=== PATIENT | female | born 1990 ===

== ENCOUNTER 2023-03-17 18:39 | Emergency (ER) | payer BC, OTHER | END 2023-03-17 19:07 | disposition home or self-care (01) | LOC: ERS 18:39 | DX: S30.0XXA Contusion of lower back and pelvis, initial encounter (principal); M62.838 Other muscle spasm; F17.290 Nicotine dependence, other tobacco product, uncomplicated; V43.52XA Car driver injured in collision with other type car in traffic accident, initial encounter; Y92.410 Unspecified street and highway as the place of occurrence of the external cause | CPT/HCPCS: 99283 ==